=== PATIENT | female | born 1985 | race Caucasian/White ===

== ENCOUNTER 2016-04-09 12:57 | Outpatient (CLI) | payer OTHER | END 2016-04-09 12:58 | disposition home or self-care (01) | DX: O34.81 Maternal care for other abnormalities of pelvic organs, first trimester (principal); N83.202 Unspecified ovarian cyst, left side; Z3A.01 Less than 8 weeks gestation of pregnancy ==

== ENCOUNTER 2016-05-27 08:00 | Outpatient (CLI) | payer OTHER | END 2016-05-27 23:59 | DX: Z36 Encounter for antenatal screening of mother (principal) ==

== ENCOUNTER 2016-06-24 15:12 | Outpatient (CLI) | payer OTHER | END 2016-06-24 15:13 | disposition home or self-care (01) | DX: Z36 Encounter for antenatal screening of mother (principal) ==

== ENCOUNTER 2016-07-09 07:29 | Outpatient (CLI) | payer OTHER ==
--- NOTE | 2016-07-09 13:56 | Ultrasound Report ---
OB ULTRASOUND: 07/09/2016 CLINICAL INDICATION: anatomy. TECHNIQUE: Real-time scanning was performed with in store marketing representative static images obtained. LAST MENSTRUAL PERIOD -- Clinical Age --- US Age 20 weeks 4 days EFW Hadlock 363 g EFW% Hadlock --- Heart Rate 146 bpm EDC --- US EDC 11/22/2016 BPD Hadlock 20 weeks 3 days; Mean mm 47.6 HC Hadlock 20 weeks 3 days; Mean mm 180.0 AC Hadlock 20 weeks 4 days; mean mm 154.6 FL Hadlock 20 weeks 4 days; Mean mm 33.7 Presentation moving Placental Location posterior Cervical Length 5.8 cm Amniotic Fluid 15.3 cm FINDINGS: There is a single viable intrauterine gestation, in variable position. heart rate is 146 BPM. The placenta is posterior, without evidence of previa. Amniotic fluid volume is normal, with an MARCIO of 15.3. By size, the fetus measures 20.6 weeks (20.7 weeks by previous sonogram on 2016). The following anatomic structures were visualized and appear normal: The intracranial contents, including the ventricles and posterior fossa; the lips and orbits; the spine; the heart, including 4 chamber view and outflow tracts, and diaphragm; the abdominal contents, including the stomach, the bilateral kidneys, and urinary bladder, as well as a normal 3 vessel cord insertion; 4 limbs. No free fluid or adnexal lesion is appreciated. IMPRESSION: SINGLE VIABLE INTRAUTERINE GESTATION, WITH EXPECTED GROWTH FROM PREVIOUS SONOGRAM. NORMAL ANATOMIC SURVEY. [facility]
== END 2016-07-09 07:30 | disposition home or self-care (01) ==
LOC: DI 07:29
PROVIDERS: ATTEND Obstetrics & Gynecology
DX: Z3A.18 18 weeks gestation of pregnancy (principal)
CPT/HCPCS: 76811

== ENCOUNTER 2016-07-29 08:00 | Outpatient (CLI) | payer OTHER | END 2016-07-29 08:01 | disposition home or self-care (01) | LOC: LAB.R 08:00 | PROVIDERS: ATTEND Obstetrics & Gynecology | DX: Z11.3 Encounter for screening for infections with a predominantly sexual mode of transmission (principal) | CPT/HCPCS: 87491; 87591 ==

== ENCOUNTER 2016-08-23 08:48 | Outpatient (CLI) | payer OTHER ==
[2016-08-23 10:34] LABS: HCT - HEMATOCRIT 30.1 % (37.0-47.0); HGB - HEMOGLOBIN 10.2 g/dL (12.0-16.0); MEAN CORPUSCULAR HEMOGLOBIN 29.1 pg (27.0-31.0); MEAN CORPUSCULAR HGB CONC 33.9 g/dL (32.0-36.0); MEAN CORPUSCULAR VOLUME 85.9 fL (81.0-99.0); MEAN PLATELET VOLUME 6.8 fL (7.9-10.8); RED BLOOD COUNT 3.5 10^6/uL (4.20-5.40); RED CELL DISTRIBUTION WIDTH 13.4 % (12.0-15.0); WHITE BLOOD COUNT 11.8 x10^3/uL (4.8-10.8)
== END 2016-08-23 08:49 | disposition home or self-care (01) ==
LOC: LAB 08:48
PROVIDERS: ATTEND Obstetrics & Gynecology
DX: Z36 Encounter for antenatal screening of mother (principal)
CPT/HCPCS: 36415; 82950; 86850

== ENCOUNTER 2016-09-08 14:21 | Outpatient (CLI) | payer OTHER ==
--- NOTE | 2016-09-10 09:07 | Ultrasound Report ---
FOLLOWUP OBSTETRICAL ULTRASOUND: 09/08/2016 CLINICAL INDICATION: For growth. TECHNIQUE: Real-time scanning was performed with personal banking representative static images obtained. LAST MENSTRUAL PERIOD 02/12/2016 Clinical Age 29 weeks 6 days US Age 30 weeks 0 days EFW Hadlock 1480 g EFW% Hadlock 51% Heart Rate 141 bpm [facility] 11/18/2016 US EDC 11/17/2016 BPD Hadlock 29 weeks 6 days; Mean mm 73.7 HC Hadlock 30 weeks 1 day; Mean mm 276.3 AC Hadlock 30 weeks 0 days; Mean mm 257.7 FL Hadlock 30 weeks 0 days; Mean mm 57.1 Presentation cephalic Placental Location posterior Cervical Length 4.5 cm Amniotic Fluid 16.2 cm FINDINGS: Single fetus is noted in vertex position. Composite gestational age by ultrasound today is 30 weeks. Expected gestational age as calculated from initial ultrasound is 29.3 weeks. This degree of growth is within normal limits. Estimated weight is 1480 grams. This is in the 51 percentile for expected gestational age. heart rate is 141 beats per minute and regular. Only limited evaluation of anatomy was done today. head showed no obvious abnormality. body showed no obvious abnormality. heart was not evaluated nor was the rest of the fetus evaluated today. Placenta is posterior. No evidence of placenta previa is seen. Amniotic fluid volume index is 16.2. This is within normal limits and within the 62nd percentile. Maternal cervix measures 4.5 cm. IMPRESSION: 1. SINGLE FETUS IS NOTED IN VERTEX POSITION. GESTATIONAL AGE TODAY IS 30 WEEKS. IT IS APPROXIMATELY 4 DAYS MORE ADVANCED THAN EXPECTED CALCULATED FROM PATIENT'S INITIAL ULTRASOUND EXAM. THIS DEGREE OF GROWTH IS WITHIN NORMAL LIMITS. 2. POSTERIOR PLACENTA IS NOTED. PLACENTA APPEARS NORMAL AND IS OF THE GRADE 0-1 TYPE. 3. NORMAL AMOUNT OF AMNIOTIC FLUID WITH AMNIOTIC FLUID INDEX OF 16.2 CM. MTDD
== END 2016-09-08 14:22 | disposition home or self-care (01) ==
LOC: DI 14:21
PROVIDERS: ATTEND Obstetrics & Gynecology
DX: O26.843 Uterine size-date discrepancy, third trimester (principal); Z3A.30 30 weeks gestation of pregnancy
CPT/HCPCS: 76816

== ENCOUNTER 2016-10-18 12:54 | Outpatient (CLI) | payer OTHER ==
--- NOTE | 2016-10-19 07:26 | Ultrasound Report ---
OB FOLLOWUP: 10/18/2016 CLINICAL INDICATION: Growth, size greater than dates. TECHNIQUE: Real-time scanning was performed with wireless sales representative static images obtained. LAST MENSTRUAL PERIOD 02/12/2016 Clinical Age 35 weeks 4 days US Age 36 weeks 0 days EFW Hadlock 2853 g EFW% Hadlock -- Heart Rate 131 bpm EDC 11/18/2016 US EDC 11/16/2016 BPD Hadlock 35 weeks 5 days; mean mm 88.4 HC Hadlock 36 weeks 0 days; mean mm 319.7 AC Hadlock 36 weeks 4 days; mean mm 327.2 FL Hadlock 35 weeks 2 days; mean mm 68.6 Presentation Cephalic Placental Location Posterior Cervical Length 3.8 cm Amniotic Fluid 12.7; 38% FINDINGS: There is a single viable intrauterine gestation in cephalic presentation. heart rate is 131 BPM. The placenta is posterior, without evidence of previa. Amniotic fluid volume is normal, with an MARCIO of 12.7. By size, the fetus measures 36 weeks (35.6 weeks by LMP, 35.0 weeks by initial sonogram). No free fluid or adnexal lesion is appreciated. IMPRESSION: SINGLE VIABLE INTRAUTERINE GESTATION, WITH SIZE IN KEEPING WITH LMP DATING. NORMAL MARCIO. MTDD
== END 2016-10-18 12:55 | disposition home or self-care (01) ==
LOC: DI 12:54
PROVIDERS: ATTEND Obstetrics & Gynecology
DX: O36.63X0 Maternal care for excessive fetal growth, third trimester, not applicable or unspecified (principal)
CPT/HCPCS: 76816

== ENCOUNTER 2016-10-19 08:00 | Outpatient (CLI) | payer OTHER | END 2016-10-19 08:01 | disposition home or self-care (01) | LOC: LAB.R 08:00 | PROVIDERS: ATTEND Obstetrics & Gynecology | DX: Z36 Encounter for antenatal screening of mother (principal) | CPT/HCPCS: 87081 ==

== ENCOUNTER 2016-11-25 07:30 | Inpatient (IN) | payer OTHER ==
--- NOTE | 2016-11-24 10:38 | HISTORY & PHYSICAL EXAMINATION ---
DATE OF ADMISSION: 11/25/2016 IDENTIFICATION: This is a 31-year-old G2, P1-0-0-1 with a 41-0/7-week intrauterine , EDC is 11/18/2016, established by a 14-week ultrasound. HISTORY OF PRESENT ILLNESS: The patient presents to [facility] for a late term induction of labor. The patient's most recent cervical examination on 11/19/2016 showed that she was 2 cm dilated , 60% effaced, -3 station. She reports the baby is moving well. She denies any vaginal bleeding or loss of fluid. At her 11/19/2016 visit, she denied having any han contractions. The patient's has only been remarkable for size greater than dates at 34 weeks gestation. Followup ultrasound shows EFW at 35 weeks of 2853 grams or the 57th percentile. MARCIO 12.74 cm. She did receive her RhoGAM on 08/23/2016, given that she is O negative. Otherwise, she started her care at 13 weeks and has been having consistent visits. PAST MEDICAL HISTORY: Noncontributory. She denies any hypertension, diabetes or thyroid disorder. PAST SURGICAL HISTORY: None. ALLERGIES: NO KNOWN DRUG ALLERGIES. MEDICATIONS: vitamins. SOCIAL HISTORY: She denies any tobacco, alcohol or illicit drug use. Her significant other is Boaz David and they have a daughter, Ramon, together. This is a female fetus with anticipated name of Zaira. The patient prefers to go to [facility] in [place], [place] and she will most likely see [facility] for their pediatric care. PAST OBSTETRICAL HISTORY: One term spontaneous vaginal delivery of daughter, Ramon, on 05/15/2014. She was delivered by Dr. King. She did receive an epidural for pain control and she had first degree bilateral labial lacerations. Apgars were 8 and 9 at 1 and 5 minutes, respectively. PAST GYNECOLOGICAL HISTORY: She has had a history of one abnormal Pap smear, which then reverted to normal. FAMILY HISTORY: She denies any female carcinoma. REVIEW OF SYSTEMS: Negative unless otherwise stated. OBJECTIVE VITAL SIGNS: She is 63 inches tall and her most recent weight is 248 pounds. GENERAL: The patient is a well-developed, well-nourished female in no apparent distress. She is alert and oriented x3. The patient is very pleasant and easy to speak to. HEENT: Within normal limits. CARDIOVASCULAR: Rate is regular, no murmurs or rubs. PULMONARY: Lungs clear to auscultation bilaterally. ABDOMEN: Gravid, nontender. Most recent fundal height is 39 cm at 40 weeks. Baby is vertex by John's. EFW is 8 pounds. LABORATORY: laboratories reveal that she is O positive, antibody screen is negative. Pap smear is negative on 05/20/2016. HIV is negative. Quad screen is negative. Chlamydia was positive on 07/29/2016 with a negative gonorrhea. 1-hour GTT is 150, 3-hour fasting is 78, 1-hour is 111, 2-hour is 117 , 3-hour is 110. Repeat gonorrhea and chlamydia on 09/10/2016 are both negative. GBS is negative. Placenta is posterior, cervical length at time of anatomical survey is 5.8 cm. MARCIO is 13.3 cm and a 3-vessel cord was noted. ASSESSMENT 1. A 39-year-old G2, P1-0-0-1 with a 41-0/7 week intrauterine . 2. Inducible cervix. 3. Rh negative. PLAN 1. We will proceed to a scheduled Pitocin induction of labor on 11/25/2016. 2. We will obtain CBC and type and hold. 3. RhoGAM . 4. Anticipate spontaneous vaginal delivery. JOB #: [id number] EXT JOB #:[id number] GRACE
[~2016-11-25 07:30] MED LIST: ONDANSETRON 4 MG/2 ML VIAL IVP PRN; SODIUM CHLORIDE FLUSH 0.9% 10 ML SYRINGE IVP PRN; fentaNYL 100 MCG/2 ML VIAL IVP PRN
--- NOTE | 2016-11-25 09:16 | PROVIDER PROGRESS NOTE ---
Labor Progress Note - Labor Progress Note Labor Progress Note/Additional Text: 31 yo with a 41w0d IUP Inducible cervix Pitocin induction. Will need to hold until patient census improved.
[2016-11-25] MEDS ORDERED: OXYTOCIN/SODIUM CHLORIDE 250 ML IV SCH (11:00)
[2016-11-25] MEDS: LACTATED RINGERS 1,000 ML IV SCH ×3 (11:06→21:44)
[2016-11-25 12:11] LABS: BASOPHILS # (AUTO) 0.1 10^3/uL (0.0-0.1); BASOPHILS % (AUTO) 0.5 %; EOSINOPHILS # (AUTO) 0.3 10^3/uL (0.0-0.7); EOSINOPHILS % (AUTO) 2.1 %; LYMPHOCYTES % (AUTO) 15.6 %; MEAN CORPUSCULAR HEMOGLOBIN 26.8 pg (27.0-31.0); MEAN CORPUSCULAR HGB CONC 32.4 g/dL (32.0-36.0); MEAN CORPUSCULAR VOLUME 82.7 fL (81.0-99.0); MEAN PLATELET VOLUME 7.2 fL (7.9-10.8); MONOCYTES # (AUTO) 1.1 10^3/uL (0.0-1.0); MONOCYTES % (AUTO) 8.6 %; NEUTROPHILS # (AUTO) 9.3 10^3/uL (1.5-6.6); NEUTROPHILS % (AUTO) 73.2 %; NUCLEATED RED BLOOD CELLS AUTO 0.1 /100WBC; RED BLOOD COUNT 4.11 10^6/uL (4.20-5.40); RED CELL DISTRIBUTION WIDTH 15.7 % (12.0-15.0); UNCORRECTED WHITE BLOOD COUNT 12.6 x10^3/uL; WHITE BLOOD COUNT 12.6 x10^3/uL (4.8-10.8)
[2016-11-25] MEDS: SODIUM CHLORIDE FLUSH 0.9% 10 ML SYRINGE IVP SCH ×2 (12:20→12:52)
--- NOTE | 2016-11-25 12:57 | PROVIDER PROGRESS NOTE ---
Labor Progress Note - Uterine Monitoring Uterine Monitoring Mode: positive: External toco Contraction Frequency (min/apart): Irreg (Pit 1mU/min) Contraction Intensity: positive: Moderate to strong Uterine Resting Tone: positive: Soft - Monitoring Monitor Mode: positive: External ultrasound Heart Rate Variability: positive: Moderate (6-25 bmp) Accelerations: positive: Present, 15x15 Decelerations: positive: None Strip Review: positive: Category I - Labor Progress Note Labor Progress Note/Additional Text: 31 yo with a 41w0d IUP Continue pitocin Expect Epidural PRN Labs, EKG, Meds, Allergy - Lab Results Fish Bones: 11/25/16 11:56 Other Lab Results: Lab Results x24hrs 11/25/16 Range/Units 11:56 WBC 12.6 H (4.8-10.8) x10^3/uL RBC 4.11 L (4.20-5.40) 10^6/uL Hgb 11.0 L (12.0-16.0) g/dL Hct 34.0 L (37.0-47.0) % MCV 82.7 (81.0-99.0) fL MCH 26.8 L (27.0-31.0) pg MCHC 32.4 (32.0-36.0) g/dL RDW 15.7 H (12.0-15.0) % Plt Count 360 (130-450) 10^3/uL MPV 7.2 L (7.9-10.8) fL Neut # 9.3 H (1.5-6.6) 10^3/uL Lymph # 2.0 (1.5-3.5) 10^3/uL [place] # 1.1 H (0.0-1.0) 10^3/uL Eos # 0.3 (0.0-0.7) 10^3/uL Baso # 0.1 (0.0-0.1) 10^3/uL Absolute Nucleated RBC 0.01 x10^3/uL Nucleated RBC % 0.1 /100WBC - Allergy Allergy: Allergies Allergy/AdvReac Type Severity Reaction Status Date / Time No Known Drug Allergies Allergy Verified 05/13/14 07:50
[2016-11-25] MEDS ORDERED: LIDOCAINE 1% 50 ML MDV ONE (17:00)
[2016-11-25] MEDS ORDERED: MINERAL OIL LIGHT 10 ML MC ONE (17:00)
--- NOTE | 2016-11-25 17:15 | PROVIDER PROGRESS NOTE ---
Labor Progress Note - Uterine Monitoring Uterine Monitoring Mode: positive: External toco Contraction Frequency (min/apart): Q3 min (6 mU/min pitocin) Contraction Intensity: positive: Moderate Uterine Resting Tone: positive: Soft - Monitoring Monitor Mode: positive: External ultrasound Heart Rate Variability: positive: Moderate (6-25 bmp) Accelerations: positive: Present, 15x15 Decelerations: positive: None Strip Review: positive: Category I - Vaginal Exam Dilation (in cm): 7 Effacement (%): 70 Station: -2 Cervical Position: Posterior - Labor Progress Note Labor Progress Note/Additional Text: 31 yo with a 41w0d IUP Active labor Continue pitocin Epidural and then AROM Expect
[2016-11-25] MEDS ORDERED: fent/BUPIV 2 MCG/0.125% 250 ML EP ONE (17:49)
--- NOTE | 2016-11-25 19:22 | PROVIDER PROGRESS NOTE ---
Labor Progress Note - Uterine Monitoring Uterine Monitoring Mode: positive: External toco Contraction Frequency (min/apart): Q2-3 (6 units pit) Contraction Intensity: positive: Mild to moderate Uterine Resting Tone: positive: Soft - Monitoring Monitor Mode: positive: External ultrasound Heart Rate Variability: positive: Moderate (6-25 bmp) Accelerations: positive: Present, 15x15 Decelerations: positive: None Strip Review: positive: Category I - Vaginal Exam Dilation (in cm): 7 Effacement (%): 70 Station: -2 Cervical Position: Posterior (AROM-- clear fluid) - Labor Progress Note Labor Progress Note/Additional Text: Expect Epidural in place and working well
[2016-11-25] MEDS ORDERED: SIMETHICONE CHEW 80 MG TABLET PO PRN (21:18)
[2016-11-25] MEDS ORDERED: HYDROCORTISONE/PRAMOXINE 10 GM PR PRN (21:18)
[2016-11-25] MEDS ORDERED: HYDROcod/ACETAM 5/325 MG TABLET PO PRN (21:18)
[2016-11-25] MEDS ORDERED: OXYTOCIN/SODIUM CHLORIDE 250 ML IV ONE (21:18)
--- NOTE | 2016-11-25 21:18 | DELIVERY NOTE ---
Delivery Note - Infant Delivery Method Infant Delivery Method: positive: Spontaneous vaginal delivery - Presentation Presentation: positive: Vertex, OA - occiput anterior - Nuchal Cord Nuchal Cord: positive: None - Amniotic Fluid Description Amniotic Fluid Description: positive: Clear - Episiotomy Type Episiotomy Type: positive: None - Laceration Laceration: positive: None - Delivery Outcome Delivery Outcome: positive: Livebirth - : positive: Placed in direct skin contact with mother, Bulb syringe sex: positive: Female : 7 : 9 - Cord Cord: positive: 3 vessels - Placenta Placenta: positive: Intact, Spontaneous - Estimated Blood Loss Estimated Blood Loss (in cc): 300 - Post Delivery Events Post Delivery Events: positive: No post delivery events - Delivery Comments (Free Text/Narrative) Delivery Comments (Free Text/Narrative): 31 yo with a 41w0d IUP presents for a late term induction of labor. Patient was started in pitocin and given an epidural for pain control. AROM with clear fluid. of a viable female fetus named Zaira. Apgars 7/9. Placenta delivered spontaneously, intact, 3VC. EBL 300 cc. No complications. Intact vulva and vagina.
[2016-11-25] MEDS ORDERED: FLU VACCINE QS 2017-2018 60 MCG/0.5 ML SYRINGE IM ONE (21:20)
[2016-11-26] MEDS: ACETAMINOPHEN 325 MG TABLET PO PRN ×2 (00:08→07:07)
[2016-11-26] MEDS ORDERED: CELECOXIB 100 MG CAPSULE PO ONE (01:18)
[2016-11-26] MEDS: LACTATED RINGERS 1,000 ML IV SCH ×3 (08:59→18:44)
[2016-11-26] MEDS: SODIUM CHLORIDE FLUSH 0.9% 10 ML SYRINGE IVP SCH ×2 (09:09→16:24)
--- NOTE | 2016-11-26 10:18 | PROVIDER PROGRESS NOTE ---
Subjective - Prog Note Date Prog Note Date: 11/26/16 Prog Note Time: 10:16 - Subjective Pt reports feeling: Improved Subjective: Patient doing well. Ambulating and tolerating a regular diet. Pain controlled and has not taken vicodin. RN requests increased Tylenol dose. Urinating without difficulty. Desires to stay another night. Current Medications - Current Medications Current Medications: Routine Celebrex. PRN Tylenol and vicodin. Objective - Vital Signs/Intake & Output Reviewed Vital Signs: Yes Vital Signs: Vital Signs x48h Temp Pulse Resp BP Pulse Ox 11/26/16 07:58 98.2 F 83 16 142/75 H 100 11/26/16 06:35 97.9 F 83 18 134/71 H 100 11/26/16 02:35 98.6 F 87 16 125/61 97 Intake & Output: Intake & Output 11/23/16 11/24/16 11/25/16 11/26/16 23:59 23:59 23:59 23:59 Intake Total 3866.716 985 Output Total 1550 300 Balance 2316.716 685 - Objective General Appearance: positive: No acute distress Abdomen: positive: Non-tender (Firm fundus) Neurologic/Psychiatric: positive: Oriented x3 - Lab Results Fish Bones: 11/25/16 11:56 Other Labs: Lab Results x24hrs 11/25/16 Range/Units 11:56 WBC 12.6 H (4.8-10.8) x10^3/uL RBC 4.11 L (4.20-5.40) 10^6/uL Hgb 11.0 L (12.0-16.0) g/dL Hct 34.0 L (37.0-47.0) % MCV 82.7 (81.0-99.0) fL MCH 26.8 L (27.0-31.0) pg MCHC 32.4 (32.0-36.0) g/dL RDW 15.7 H (12.0-15.0) % Plt Count 360 (130-450) 10^3/uL MPV 7.2 L (7.9-10.8) fL Neut # 9.3 H (1.5-6.6) 10^3/uL Lymph # 2.0 (1.5-3.5) 10^3/uL [place] # 1.1 H (0.0-1.0) 10^3/uL Eos # 0.3 (0.0-0.7) 10^3/uL Baso # 0.1 (0.0-0.1) 10^3/uL Absolute Nucleated RBC 0.01 x10^3/uL Nucleated RBC % 0.1 /100WBC Assessment/Plan - Problem List (1) Vaginal delivery Impression: 31 yo S/p 11/26/2016 Normal recovery Routine care Will increase Tylenol to 500 mg 2 tabs po Q8H Anticipate discharge to home tomorrow Rx for Tylenol, motrin and colace faxed to [facility] in [place] Discharge summary dictated ([id number])
[2016-11-26] MEDS: ACETAMINOPHEN 500 MG TABLET PO SCH ×2 (10:54→19:05)
[2016-11-26] MEDS: CELECOXIB 100 MG CAPSULE PO SCH ×2 (10:54→23:10)
[2016-11-26] MEDS: DOCUSATE SODIUM 100 MG CAPSULE PO SCH ×2 (10:54→20:42)
[2016-11-26] MEDS ORDERED: RHO(D) IMMUNE GLOBULIN 300 MCG SYRINGE IM ONE (15:38)
[2016-11-27] MEDS: ACETAMINOPHEN 500 MG TABLET PO SCH ×2 (03:05→10:52)
[2016-11-27] MEDS: SODIUM CHLORIDE FLUSH 0.9% 10 ML SYRINGE IVP SCH (08:28)
[2016-11-27] MEDS: CELECOXIB 100 MG CAPSULE PO SCH (10:52)
[2016-11-27] MEDS: DOCUSATE SODIUM 100 MG CAPSULE PO SCH (10:52)
[2016-11-27] MEDS ORDERED: RHO(D) IMMUNE GLOBULIN 300 MCG SYRINGE ONE (14:27)
[2016-11-27 17:38] VITALS: BP 136/74
--- NOTE | 2016-11-27 18:31 | Discharge Plan ---
Discharge Plan Disposition: 01 Home, Self Care Condition: Good Diet: Regular Activity Restrictions: Activity as Tolerated Shower Restrictions: No Driving Restrictions: No No Smoking: If you smoke, Please STOP! Call for help. Follow-up with: Hue Dye DO [Primary Care Provider] -
--- NOTE | 2016-11-27 20:15 | Labor Flowsheet ---
Labor Flowsheet Datetime Report Generated by CPN: 11/27/2016 20:10 Datetime: 11/27/2016 17:31 VITAL SIGNS NBP Sys/Dorothea/Mean (mmHg): 136 : 74 : 88 Pulse: 77 Datetime: 11/27/2016 03:04 Temperature (F): 93.7 Temperature (C): 34.3 Temperature (C): 34.3 Datetime: 11/26/2016 06:44 SpO2 (%): 100 Datetime: 11/25/2016 21:01 Stage 2 Comments: 2101: placenta delivered Datetime: 11/25/2016 20:57 STAGE 2 Pushing: Coached on Pushing Pushing Position: Pushing with Contractions Pushing Progress: Descent with Pushing Datetime: 11/25/2016 20:55 UTERINE ACTIVITY Monitor Mode: External Frequency (min): 2-3 Quality: Moderate Duration (sec): 55-60 Pattern: Normal: <= 5 Contractions in 10 Minutes Resting Tone (Palpate): Relaxed Pitocin Checklist: At Least 1 Acceleration of 15 bpm x 15 Seconds in 30 Minutes or Adequate Variabi lity; No More than 1 Late Deceleration Occurred in Past 30 Minutes; No More than 2 Variable Decelerat ions > 60 Seconds in Duration and decreasing >60 bpm in 30 minutes; No More than 5 Uterine Contractio ns in 10 Minutes for any 20 Minute Interval; Uterus Palpates Soft between Contractions ASSESSMENT A Monitor Mode: External US FHR Baseline Rate : 100 FHR Baseline Changes: Bradycardia Variability: Moderate 6-25 bpm Accelerations: 10X10 Decelerations: Prolonged (Annotations: FHR=90s x 2.5min with descent of head) Actions for Decelerations: Side to Side; Oxygen Applied; IV Bolus; Provider Notified Datetime: 11/25/2016 20:54 LaborFlag: Labor Datetime: 11/25/2016 20:45 Category: Category II PAIN Pain Scale: 3 Pain Presence: Intermittent Pain Type: Contraction; Pressure; Ache Pain Location: Perineum; Sacrum Pain Relief Measures: Epidural Given; Comfort Measures Pain Coping: Breathing Through Contractions Anesthesia Level Check: T6- Xyphoid Datetime: 11/25/2016 20:38 COMMUNICATION Communication: Provider at Bedside Provider Notified (Name): Hardik Communication Comments: Prep for delivery Datetime: 11/25/2016 20:37 VAGINAL EXAM Dilatation (cm): 10.0 Effacement (%): 100 Station: 1 Exam by: RNC Spear Datetime: 11/25/2016 20:15 Respirations: 20 Datetime: 11/25/2016 20:13 Vaginal Bleeding: None Cervix, Consistency: Soft Cervix, Position: Anterior Datetime: 11/25/2016 20:09 I/O Interventions: Straight Cath (ml) @ 250 Datetime: 11/25/2016 20:02 MEDICATIONS Pitocin (milliunits): Decreased to @ 5 Datetime: 11/25/2016 19:30 Pain Goal: 3 Amniotic Fluid Color: Clear Datetime: 11/25/2016 19:14 Stage of : Labor Amniotic Fluid Odor: Normal MATERNAL ASSESSMENT Level of Consciousness: Fully Conscious DTR's/Clonus: DTRs 3+; No Clonus Headache: Denies Breath Sounds, Left: Clear and Equal Breath Sounds, Right: Clear and Equal Nausea/Vomiting: Denies RUQ Epigastric Pain: Denies Oxygen Method: Room Air Patient Position/Activity: High Fowlers Comfort Measures: Breathing/Relaxation; Family Support ANESTHESIA Anesthesia Plans: Epidural TEACHING Instructional Method: Verbal; Patient Instructed; Family/Support Person Instructed; Verbalized Unde rstanding Plan of Care: Plan of Care Discussed; Vaginal Delivery; Induction Unit Routine: Monitoring; Safety/Fall Risk Prevention Labor/Induction: Labor Stages; Activity; Pushing Methods Pain Management: Epidural Datetime: 11/25/2016 19:11 Pain Assessment Comments: pt feels tightening, no pain, some pressure Datetime: 11/25/2016 18:59 Membrane Status: Ruptured Membranes Rupture Method: Artificial Amniotic Fluid Amount: Small Datetime: 11/25/2016 18:44 Monitor Interventions for FHR: Ultrasound Adjusted Comments: baby on and off monitor, efm adjusted Datetime: 11/25/2016 18:36 Epidural Procedure: Completed Epidural Procedure Other: Pump Started Datetime: 11/25/2016 18:30 Vibroacoustic Stim: unable to assess decels and cat. efm adjusted Datetime: 11/25/2016 18:14 PROCEDURE TIME OUT Procedure Verify: Correct Patient Identity; Correct Side and Site are Marked; Accurate Procedure Co nsent Form; Agreement on Procedure to be Done; Correct Patient Position; Safety Precautions Based on Patient History or Medication Use Anesthesia Comments: 2 attemps Datetime: 11/25/2016 17:57 Epidural Positioning: Side Lying Datetime: 11/25/2016 17:30 Contraction Comments: pt breathing through ctx. Datetime: 11/25/2016 14:28 Patient Care Comments: frog legs Datetime: 11/25/2016 12:49 Medication Comments: iv occulded, iv flushed Datetime: 11/25/2016 10:39 PATIENT CARE IV/Blood Work: IV Started
--- NOTE | 2016-11-28 11:09 | DISCHARGE SUMMARY ---
DATE OF ADMISSION: 11/25/2016 DATE OF DISCHARGE: 11/27/2016 DIAGNOSES ON ADMISSION 1. A 31-year-old G2, P1-0-0-1 with a 41-0/7-week intrauterine . 2. Favorable cervix. DIAGNOSES ON DISCHARGE 1. A 31-year-old G2, P2-0-0-2 status post spontaneous vaginal delivery on 11/25/2016. 2. Normal recovery. BRIEF HISTORY: This is a patient of [facility] who presented on 11/25/2016 for schedu led induction of labor. The patient was 41 weeks 0 days. She was scheduled for a late term induction of labor. Cervical examination in the office showed she was 2 cm dilated, 60% effaced and -3 station. She was in the hospital and given Pitocin for induction of labor. She progressed to 7 cm, 70% efface ment and -2 station. Artificial rupture of membranes revealed clear fluid. She did get an epidural fo r pain control. She spontaneously delivered a viable female infant named Zaira with Apgars of 7 and 9 at one and f denton minutes, respectively. Baby weighed 3928 grams. The patient delivered over an intact peritoneum a nd the placenta delivered spontaneously, intact with a 3-vessel cord. EBL was 300 mL. Her course has been unremarkable. She is ambulating and tolerating a regular diet. She is urinating without difficulty, and her pain is controlled with oral medications. She will be discharge d to home on 11/27/2016 day #1-1/2. MEDICATIONS: Prescriptions for Tylenol, Motrin, and Colace have been faxed to [facility] in [place] . The patient is to see us at [facility] in 6 weeks for routine evaluation a nd to also discuss control options. The patient is to call should she have any worsening fevers , chills, abdominal pain, or vaginal bleeding. JOB #: [id number] EXT JOB #:[id number]
--- NOTE | 2016-11-28 11:15 | DISCHARGE SUMMARY ---
DATE OF ADMISSION: 11/25/2016 DATE OF DISCHARGE: 11/27/2016 DIAGNOSES 1. A 41-week gestation. 2. Induction of labor. 3. Maternal blood type O negative. HISTORY OF PRESENT ILLNESS: The patient is a 31-year-old 2, para 1-0-0-1 woman at 4 1 weeks' gestation established by early ultrasound. She was evaluated for induction and found to have a cervical exam of 2 cm dilation, 60% effaced and -[address] Dye's admit H and P. HOSPITAL COURSE: The patient's induction was initially delayed due to sepsis concerns. Pitocin was be gun at roughly 12:30 on the . Epidural was placed. The patient entered a good contraction pattern with a stable cat 1 strip. On 11/25 at roughly 2100 hours, a living female was born, scoring A pgars of 7 and 9. The delivery was uncomplicated with a blood loss of 300. Post-delivery, the patient did well, rapidly advancing to a full diet and activity. Pain was well con trolled with NSAIDS. Post- hemoglobin was 11.0. RhoGAM was administered. GBS status negative, h epatitis B surface antigen negative, RPR negative. On 11/27, the patient felt well and desired discharge. Warning and callback signs were reviewed. We d iscussed briefly the different contraceptive options and she intends to research this and discuss alissa t topic more fully on her 6-week check. FOLLOWUP: 6 weeks. DISCHARGE MEDICATIONS 1. Celebrex. 2. Tylenol. 3. Vicodin. JOB #: [id number] EXT JOB #:[id number]
== END 2016-11-27 19:03 | disposition home or self-care (01) | DRG 775 ==
LOC: FBP 07:36
PROVIDERS: ADMIT Obstetrics & Gynecology; ATTEND Obstetrics & Gynecology
PROC: 10E0XZZ Delivery of Products of Conception, External Approach (ICD-10-PCS; principal; 2016-11-25)
PROC: 10907ZC Drainage of Amniotic Fluid, Therapeutic from Products of Conception, Via Natural or Artificial Opening (ICD-10-PCS; 2016-11-25)
PROC: 3E0P3VZ Introduction of Hormone into Female Reproductive, Percutaneous Approach (ICD-10-PCS; 2016-11-25)
DX: O48.0 Post-term pregnancy (principal); O26.893 Other specified pregnancy related conditions, third trimester; Z3A.41 41 weeks gestation of pregnancy; Z37.0 Single live birth; Z67.41 Type O blood, Rh negative
CPT/HCPCS: 36415; 83033; 85025; 86900; 86901